=== PATIENT | female | born 1990 | race Caucasian/White ===

== ENCOUNTER 2019-04-18 05:30 | Inpatient (IN) ==
[2019-04-18] MEDS ORDERED: Metoclopramide 10 MG/2 ML VIAL IVP PRN (06:13)
[2019-04-18] MEDS ORDERED: miSOPROStol 25 MCG TABLET PO PRN (06:13)
[2019-04-18] MEDS ORDERED: *HR* Nalbuphine 10 MG/ML AMPUL IVP PRN (06:13)
[2019-04-18] MEDS ORDERED: Ondansetron 4 MG/2 ML VIAL IVP PRN (06:13)
[2019-04-18] MEDS ORDERED: Naloxone 0.4 MG/ML INJ IVP PRN (06:13)
[2019-04-18] MEDS ORDERED: Famotidine 20 MG/2 ML VIAL IVP PRN (06:13)
[2019-04-18] MEDS ORDERED: Ringers Solution, Lactated 1,000 ML IVC SCH (06:15)
[2019-04-18] MEDS ORDERED: Oxytocin 20 units/ LR 1000 mL 20 UNIT/1,000 ML BAG IVC SCH (06:15)
[2019-04-18] MEDS ORDERED: Ringers Solution, Lactated 1,000 ML ONE (06:18)
[2019-04-18 06:43] LABS: Basophils % 0.2 %; Eosinophils # 0.2 K/mcL (0.0-0.6); Eosinophils % 1.2 %; Hematocrit 35.9 % (35.3-44.9); Hemoglobin 11.9 g/dL (11.5-15.4); Immature Granulocytes % 0.7 % (0-4); Lymphocytes # 2.1 K/mcL (0.6-4.6); Lymphocytes % 12.6 %; Mean Corpuscular HGB Conc 33.1 g/dL (31.6-35.5); Mean Corpuscular Hemoglobin 28.6 pg (28.0-33.3); Mean Corpuscular Volume 86.3 fL (83.0-100.0); Mean Platelet Volume 12.1 fL (9.4-12.4); Monocytes # 0.8 K/mcL (0.0-1.3); Monocytes % 4.8 %; Neutrophils # 13.6 K/mcL (1.6-8.9); Platelet Count 244 K/mcL (140-400); Red Blood Count 4.16 M/mcL (3.82-4.97); Red Cell Distribution Width 14.1 % (11.5-14.5); Segmented Neutrophils % 80.5 %; White Blood Count 16.9 K/mcL (4.3-11.1)
[2019-04-18 06:51] LABS: Amphetamine Screen,Urine Negative ng/mL (Cutoff=1000); Barbiturate Screen,Urine Negative ng/mL (Cutoff=200)
[2019-04-18 06:53] LABS: Benzodiazepines Screen,Urine Negative ng/mL (Cutoff=300); Cannabinoid Screen,Urine Negative ng/mL (Cutoff = 50); Cocaine Screen,Urine Negative ng/mL (Cutoff= 300); Opiate Screen,Urine Negative ng/mL (Cutoff=300); Phencyclidine Screen,Urine Negative ng/mL (Cutoff=25)
[2019-04-18 08:16] LABS: Creatinine,Urine 104 mg/dL; Protein/Creatinine Ratio,Urine 0.21 mg/mg (0.00-0.20)
--- NOTE | 2019-04-18 08:27 | OB/GYN History & Physical ---
Date of Encounter: 04/18/19 Time of Encounter: 08:23 Assessment and Plan (1) 38 weeks gestation of Current visit: Yes Status: Acute (2) Obesity affecting in third trimester Current visit: Yes Status: Acute (3) Chronic hypertension during Current visit: Yes Status: Acute Plan for induction of labor with cytotec and espinal catheter. Cook catheter is inserted without difficulty and 60 ml placed in the uterine balloon and 40 ml in the vaginal balloon. Patient tolerated the procedure well. External monitoring Anticipate vaginal delivery History of Present Illness Chief complaint: induction of labor for chronic hypertension HPI: Ms. Pierre is a 29 year old female G 3 P 1-0-1-1 at 38 0/7 weeks her for induction of labor for chronic hypertension not requiring medication. She denies any headaches, visual changes, or RUQ pain. She reports good movement. She is not feeling any contractions, vaginal bleeding, or leaking fluid. Her has been complicated by maternal obesity, 2 vessel cord, and chronic hypertension. PN labs B positive Rubella Immune Varicella Immune GBS negative Past Med Surg Social Fam HX - Past Medical History Source: patient Medical history: hypertension Additional medical history: CHRONIC HTN, headaches Psychiatric history: depression - Past Surgical History Surgical History: no surgical history - Social History Smoking Status: Never smoker Alcohol use: none Drug use: none - Family History Mother Adopted: No Living Status: Still Living Hx Family Cardiac Disorders: No Hx Family Respiratory Disorders: Yes (COPD, ASTHMA) Hx Family Cancer: No Hx Family GI Disorders: No Hx Family Genitourinary Disorders: No Hx Family Endocrine Disorder: No Hx Family Musculoskeletal Disorders: No Hx Family Neuromuscular Disorders: Yes (ESSENTIAL TREMOR DISEASE) Hx Family Neurologic Disorders: No Hx Family HEENT Disorders: No Hx Family Autoimmune Disorders: No Hx Family Reproductive Disorders: No Hx Family Psychosocial Disorders: No Hx Family Medical Disorders: No Obstetrical History - Pregnancies : 3 Para: 1 Term: 1 : 0 Ab's: 1 Livin Medications and Allergies Aspirin 81 mg PO DAILY 04/18/19 [History] Formula Tablet 1 tab PO DAILY 04/18/19 [History] Allergy/AdvReac Type Severity Reaction Status Date / Time No Known Allergies Allergy Verified 04/18/19 06:21 Review of System OB All systems PM: reviewed and no additional remarkable complaints except as stated - Constitutional Constitutional ROS IM: no chills, no headache(s), no lethargy - Gastrointestinal Gastrointestinal: no nausea, no vomiting Exam - Vital Signs Vital signs: Initial Vital Signs Temp Pulse Resp BP 98.2 F 112 15 132/66 04/18/19 06:09 04/18/19 06:09 04/18/19 06:09 04/18/19 06:09 - Constitutional Constitutional: well developed, well nourished, no acute distress, obese - HEENT HEENT: EOMI - Lungs Respiratory exam: CTAB - Cardiovascular Cardiovascular exam: RRR - Abdomen Abdomen: Present: bowel sounds normal, gravid, non tender - Extremities Extremities exam: pedal edema - Vagina Vagina: Present: normal moisture - Cervix Dilation: 2 Effacement: 50 Station: -2 - Comments Comments: FHT's baseline 130, category 1 Results Result Diagrams: 04/18/19 06:05 04/18/19 06:05 Abnormal lab results WBC 16.9 K/mcL (4.3-11.1) H 04/18/19 06:05 Neutrophils # 13.6 K/mcL (1.6-8.9) H 04/18/19 06:05 Creatinine 0.50 mg/dL (0.60-1.20) L 04/18/19 06:05 Protein/Creatinin Ratio 0.21 mg/mg (0.00-0.20) H 04/18/19 06:05 Urine Total Protein 22 mg/dL (1-14) H 04/18/19 06:05 All other labs reviewed US - abdomen: report reviewed (EFW 6lb 4 oz 43% ZANA 6.9 cm on 04/13/2019) - VTE Reasons for not Prescribing Prophylaxis: Treatment not Indicated - Low risk for VTE
[2019-04-18] MEDS: Epidural Premix (fent/bupiv) 110 ML EP SCH ×2 (12:23→19:11)
--- NOTE | 2019-04-18 12:57 | OB Labor Progress Note ---
Date of Encounter: 04/18/19 Time of Encounter: 12:55 Labor Progress Note - Subjective Subjective: Patient is comfortable after the epidural - Cervix Cervix: 4/50/-3 cephalic - Heart Tones Heart Tones: category 1, baseline 135 - [employer]: infrequent - Interventions Interventions: AROM with clear fluid. IUPC and FSE placed without difficulty - Plan Plan: Begin pitocin PRN
--- NOTE | 2019-04-18 13:33 | Event Note ---
Date of Encounter: 04/18/19 Time of Encounter: 13:27 CTSP:palpitations Patient is complaining of palpitations. She denies any chest pain or shortness of breath. She states she frequently gets tachycardia and has since she was a teenager. She states she has never had a workup or any problems associated with this. BP108/59 Previous to epidural was 130's systolic/60's CV-Tachycardia with regular rhythm Lungs clear Patient appears to be resting comfortably and he is in no distress EKG-12 lead stat Anethesia ordered administration of phenylephrine for the relative hypotension Continue to monitor FHTs and maternal heart rate
[2019-04-18] MEDS ORDERED: *HR* Adenosine 6 MG/2 ML VIAL IVP ONE ×2 (13:49)
--- NOTE | 2019-04-18 13:51 | Anesthesia Evaluation PreOp ---
Date of Encounter: 04/18/19 Time of Encounter: 12:00 - Past History Planned Operation: SHARI Cardiac History: Denies any Significant Hx Pulmonary History: Denies Any Significant HX [employer] History: Denies Any Significant HX Other Medical History: Denies Any Significant HX Anesthesia History: No Prior Anesthetic Complications : Yes Alcohol Use: none Drug use: none Medications and Allergies Aspirin 81 mg PO DAILY 04/18/19 [History] Formula Tablet 1 tab PO DAILY 04/18/19 [History] Allergy/AdvReac Type Severity Reaction Status Date / Time No Known Allergies Allergy Verified 04/18/19 06:21 - Meds/Allergy Pre-op Review Medications Reviewed: Yes Allergies Reviewed: Yes Beta Blockers on Current Med List: No Anesthesia Results - Labs 04/18/19 06:05 04/18/19 06:05 Anesthesia Exam - HEENT Pupil (Motor): Pupils equal Mallampati: II Teeth: Normal Oral Opening: Greater than 3 - [employer] LOC: Oriented [employer] Motor: Normal RUE, Normal LUE, Normal RLE, Normal LLE, Normal Face [employer] Sensory: Normal: RUE, LUE, RLE, LLE, Face - Cardiac Rhythm: Regular Murmur: None JVD: No Carotid Bruit: No - Pulmonary Breath Sounds: bilateral Clear, bilateral Rales, bilateral Rhonchi Anesthesia Assess/Plan ASA Score: 2 Level of consciousness: Cooperative Anesthetic Plan: Epidural
--- NOTE | 2019-04-18 13:53 | Anesthesia Procedures ---
Date of Encounter: 04/18/19 Time of Encounter: 12:14 Procedures: Anesthesia - Epidural/Spinal Patient ID/Chart reviewed: Yes Patient examined: Yes OB Eval: Gestational age: 38 OB Eval: : 3 OB Eval: Hx Para: 1 OB Eval: Dilated at (cm): 4 OB Eval: Contractions: Non-stressed pattern Consent Obtained: Yes Supplemental Oxygen: None/Room Air Site Prep: Aseptic Technique, Sterile prep and drape, Povidone-Iodine 1% Patient position: upright Amount of Local Anesthetic used: 3 Touhy Needle Gauge: 18 Touhy Needle Depth (cm): 8 Catheter Depth at Skin (cm): 10 Test Dose (1.5% Lido + Epi): Volume given (mls): 3 Test Dose Result: Negative Infusion Rate (mls/hr): [address]: Tegaderm, Tape Interspace Used: L4-L5 Loss of Resistance (KRAIG): Yes Blood: No CSF: No Paresthesia: No Procedure: tolerated procedure well VSS FHTS
--- NOTE | 2019-04-18 15:51 | Cardiology Consult Note ---
<Dylan Gil M - Last Filed: 04/18/19 15:44> Date of Encounter: 04/18/19 Time of Encounter: 14:00 Assessment and Plan (1) Supraventricular tachycardia Current Visit: Yes Status: Acute Patient was noted to be in SVT EKG showed indeterminate ST/T wave abnormalities HR was in the 120's Patient reports history of palpitations, no formal W/U Patient was symptomatic with palpitations, BP stable Patient was in active labor with Epidural in place Vagal Maneuvers ineffective 6mg IVP Adenocard given Repeat EKG showed Sinus Tachycardia, rate improved to low 100's Patient reported symptomatic improvement as well -Continue Telemetry -Started on 25mg Lopressor BID -Will S/O at this time, please call if any questions and reconsult as needed Discussion w patient/family: The assessment and plan as outlined above was discussed with the patient and/or family members who expressed understanding and agreement. All questions were answered. Thank you for involving us in the care of your patient. Please call with any questions. History of Present Illness Consult date: 04/18/19 Consult reason: tachycardia Chief complaint: palpitations History of present illness: Ms. Pierre is a 29 year old female with a PMHx of HTN, Headaches, and depression, who is currently admitted to the L+D unit for induction of labor d/t chronic HTN. The patient was reporting symptoms of palpitations, and an EKG was obtained which revealed the patient was in supraventricular tachycardia with non-diagnostic ST/T wave abnormalities. The patient was seen and examined at bedside and reported some minimal discomfort. Adenocard was used for chemical cardioversion with good success. Repeat EKG showed Sinus Tachycardia with normal ST/T waves and no signs of ischemia. Past Med Surg Social Fam HX - Past Medical History Medical history: hypertension Additional medical history: CHRONIC HTN, headaches Psychiatric history: depression - Past Surgical History Surgical History: no surgical history - Social History Smoking Status: Never smoker Alcohol use: none Drug use: none - Family History Mother Adopted: No Living Status: Still Living Hx Family Cardiac Disorders: No Hx Family Respiratory Disorders: Yes (COPD, ASTHMA) Hx Family Cancer: No Hx Family GI Disorders: No Hx Family Genitourinary Disorders: No Hx Family Endocrine Disorder: No Hx Family Musculoskeletal Disorders: No Hx Family Neuromuscular Disorders: Yes (ESSENTIAL TREMOR DISEASE) Hx Family Neurologic Disorders: No Hx Family HEENT Disorders: No Hx Family Autoimmune Disorders: No Hx Family Reproductive Disorders: No Hx Family Psychosocial Disorders: No Hx Family Medical Disorders: No Medications and Allergies Aspirin 81 mg PO DAILY 04/18/19 [History] Formula Tablet 1 tab PO DAILY 04/18/19 [History] Allergy/AdvReac Type Severity Reaction Status Date / Time No Known Allergies Allergy Verified 04/18/19 06:21 All Systems Review: The remainder of the systems were reviewed and are negative Physical Examination Other: Gen: Alert and oriented x 3, NAD, Vitals noted. Head: atraumatic normocephalic Eyes: anicteric sclera ENT: MMM, Oropharynx clear Neck: trachea midline CV: Sinus Tachycardia, regular rhythm, no murmurs gallops rubs Resp: CTAB no wheeze/rales/rhonchi Abd: Soft, nontender Ext: no peripheral edema Results 04/18/19 06:05 04/18/19 06:05 Lab Results 04/18/19 04/18/19 06:05 06:05 WBC 16.9 H Hgb 11.9 Hct 35.9 Plt Count 244 Creatinine 0.50 L Consult Discharge Plan - Plan Referrals: NONE,PCP [Primary Care Provider] - <Richard Prasad A - Last Filed: 04/18/19 20:17> Date of Encounter: 04/18/19 - Attending Attestation I have personally performed a face to face evaluation on this patient. I have reviewed and agree with the documented findings and care plan as documented by the resident. History and Exam by me shows: 29 y/o F in labour noted to have SVT on EKG. She has history of palpitations since teenage years. Drinks a lot of soda containing caffeine AAOX3 in NAD at the bedside Hemodynamically stable Cardiopulmonary exam revealed S1, S2, no murmur; clear lungs Rhythm reviewed - SVT with rate related ST depressions Echo pending Impression/plan: SVT -IV adenosine 6mg once under my close one-on-one supervision promptly resolved SVT - start metoprolol 25mg bid if no contraindications - obtain echocardiogram - follow up with cardiology after delivery Thanks for the consult, please call with questions. Richard Prasad MD FACC Assessment and Plan Discussion w patient/family: The assessment and plan as outlined above was discussed with the patient and/or family members who expressed understanding and agreement. All questions were answered. Thank you for involving us in the care of your patient. Please call with any questions. History of Present Illness History of present illness: Ms. Pierre is a 29 year old female All Systems Review: The remainder of the systems were reviewed and are negative Results 04/18/19 06:05 04/18/19 06:05 Lab Results 04/18/19 04/18/19 06:05 06:05 WBC 16.9 H Hgb 11.9 Hct 35.9 Plt Count 244 Creatinine 0.50 L
--- NOTE | 2019-04-18 18:35 | Electrocardiograph Report ---
[address] [address] Test Date: 2019-04-18 Pat Name: Joyce Pierre Department: 101 Room: [facility] Gender: F Production Planning Manager: : 1990 Requested By: Silvia Burt Order Number: [id number] Reading MD: Richard Prasad Measurements Intervals [place] Rate: 102 P: 61 [place]: 168 QRS: 34 QRSD: 85 T: 28 QT: 325 QTc: 384 Interpretive Statements SINUS TACHYCARDIA Electronically Signed On 04-18-2019 17:02:40 EDT by Richard Prasad
--- NOTE | 2019-04-18 18:35 | Electrocardiograph Report ---
[address] [address] Test Date: 2019-04-18 Pat Name: Joyce Pierre Department: 101 Room: [facility] Gender: F Leg Man: SONY : 1990 Requested By: Faye Holland Order Number: [id number] Reading MD: Richard Prasad Measurements Intervals [place] Rate: 173 P: [place]: 0 QRS: 47 QRSD: 85 T: -69 QT: 249 QTc: 342 Interpretive Statements SUPRAVENTRICULAR TACHYCARDIA NON SPECIFIC ST DEVIATION AND T-WAVE ABNORMALITY Electronically Signed On 04-18-2019 17:02:01 EDT by Richard Prasad
[2019-04-18] MEDS ORDERED: Ropivacaine /PF 1% 100 MG/10 ML VIAL ONE (20:29)
--- NOTE | 2019-04-18 22:05 | Anesthesia Progress Note ---
Date of Encounter: 04/18/19 Time of Encounter: 20:30 Anesthesia Note - Note Note: 04/18/19 22:02 called to patient bedside, states right side pain free, left side with pain rated at 10. Naropin 1% 5ml given via epidural catheter. 2100 reassessment reports left side is now pain free.
--- NOTE | 2019-04-19 00:56 | OB/GYN Procedure Note ---
Delivery - Delivery Date: 04/19/19 Provider: Silvia Burt Intrapartum events: other(please specify) (maternal SVT, treated with adenosine and resolved) Delivery induction: AROM, oxytocin, espinal, misoprostol Delivery monitor: external FHT, external uterine, internal FHT, internal uterine Anesthesia: epidural Quantitated Blood Loss: 100 - Infant (s) Infant A Infant Delivery Date: 04/19/19 Delivery Time: 00:37 Presentation: vertex Position: OA Route of delivery: Gender: Female Viability: Viable Pounds: 7 Ounces: 2 Weight Gram: 3.225 kg at 1 minute: 8 at 5 mins: 9 Shoulder Dystocia: not encountered Specimens collected: cord blood Placenta: spontaneous Cord: nuchal cord, 3 umbilical vessels, delivered through nuchal - Repair Episiotomy: none Laceration Description: None - Complications Delivery complications: none Delivery comments: Called to room with patient complete and +2 station. Under maternal effort she delivered a viable female weighing 7 lbs. 2 oz. and Apgars 8 and 9 at one and 5 minutes respective labor intact perineum. Following delivery of the head there was a loose nuchal cord noted that was delivered through. The shoulders and remainder of the delivered with maternal effort and was placed on mom's abdomen. Cord was allowed to cease pulsations and then was double clamped and cut with assistance from the father. Cord blood was collected. Placenta delivered spontaneously, complete, and intact with a three- vessel cord. There were no perineal, labial, or vaginal lacerations on exam. Mother and recovering in the LDR in stable condition. - Disposition Mom disposition: stable in LDR [place] disposition: stable in LDR
[2019-04-19] MEDS ORDERED: Measles/Mumps/Rubella Vacc 0.5 ML VIAL SQ PRN (04:00)
[2019-04-19] MEDS ORDERED: Oxytocin 20 units/ LR 1000 mL 20 UNIT/1,000 ML BAG IVC SCH (04:00)
[2019-04-19] MEDS ORDERED: Etonogestrel 68 MG IMPLANT IL ONE (04:00)
[2019-04-19] MEDS ORDERED: Oxytocin 20 units/ LR 1000 mL 20 UNIT/1,000 ML BAG IVC ONE (04:00)
[2019-04-19] MEDS: Aspirin 81 MG TAB.CHEW PO SCH (08:53)
[2019-04-19] MEDS: Prenatal Vit/FA 1 EACH TABLET PO SCH (08:53)
[2019-04-19] MEDS: Acetaminophen 325 MG TABLET PO PRN (09:06)
--- NOTE | 2019-04-19 12:23 | Event Note ---
Date of Encounter: 04/19/19 Time of Encounter: 12:00 - Cardiology Event Note Prelim TTE findings reviewed with --normal LVEF, normal wall motion, no significant valvular dysfunction. No recurrent SVT. Patient reports hx of SVT, diagnosed as a teenager. Has never been on medications. Reports increase in frequency of symptoms over the past 6 months-1year. Continue BB. Will coordinate outpatient follow-up with EP for evaluation of SVT ablation.
[2019-04-19] MEDS: Ibuprofen 600 MG TABLET PO PRN (18:55)
[2019-04-20] MEDS: Prenatal Vit/FA 1 EACH TABLET PO SCH (08:14)
[2019-04-20] MEDS: Aspirin 81 MG TAB.CHEW PO SCH (08:14)
[2019-04-20] MEDS: Ibuprofen 600 MG TABLET PO PRN (08:15)
[2019-04-20 08:35] VITALS: BP 138/72
[2019-04-20] MEDS: Acetaminophen 325 MG TABLET PO PRN (13:12)
--- NOTE | 2019-04-20 15:50 | Discharge Summary ---
Date of Encounter: 04/20/19 Time of Encounter: 15:48 - Discharge Diagnosis (1) Status post vaginal delivery Priority: Primary Status: Acute Comments: Patient meeting day one milestones. Pain well-controlled with prescribed medications. Voiding without difficulty, tolerating regular diet, bleeding light. No bowel movement yet. Anticipate discharge today (2) Chronic hypertension during Priority: Secondary Status: Acute Comments: Follow-up with primary care provider as needed (3) Supraventricular tachycardia Priority: Secondary Status: Acute Comments: Cardiology was consulted and performed echocardiogram which returned normal. Patient was placed on a beta aayush and that will continue at discharge. She is to follow-up on an outpatient basis with cardiology (4) Nexplanon insertion Priority: Secondary Status: Acute Comments: Patient desires Nexplanon placement prior to discharge as her method of control - Discharge Medications Prescriptions: New Metoprolol [Lopressor] 25 mg PO BID #60 tablet Acetaminophen [Tylenol] 650 mg PO Q6HR PRN tablet PRN Reason: Mild Pain Ibuprofen [Motrin] 600 mg PO Q6HR PRN #60 tablet PRN Reason: Cramping Docusate [Colace] 100 mg PO BID capsule Continued Formula Tablet 1 tab PO DAILY Aspirin 81 mg PO DAILY Home Medications: Aspirin 81 mg PO DAILY 04/18/19 [History] Formula Tablet 1 tab PO DAILY 04/18/19 [History] Acetaminophen [Tylenol] 650 mg PO Q6HR PRN tablet 04/20/19 [Rx] Docusate [Colace] 100 mg PO BID capsule 04/20/19 [Rx] Ibuprofen [Motrin] 600 mg PO Q6HR PRN #60 tablet 04/20/19 [Rx] Metoprolol [Lopressor] 25 mg PO BID #60 tablet 04/20/19 [Rx] Allergies/Adverse Reactions: Allergy/AdvReac Type Severity Reaction Status Date / Time No Known Allergies Allergy Verified 04/18/19 06:21 Data Procedures and tests throughout hospitalization: Laboratory Tests 04/18/19 04/18/19 04/18/19 06:05 06:05 06:05 WBC RBC Hgb Hct MCV MCH MCHC RDW Plt Count MPV Immature Gran % Seg Neutrophils % Lymphocytes % Monocytes % Eosinophils % Basophils % Neutrophils # Lymphocytes # Monocytes # Eosinophils # Basophils # Creatinine 0.50 L Urine Creatinine 104 Protein/Creatinin Ratio 0.21 H Urine Total Protein 22 H Urine Opiates Screen Negative Ur Buprenorphine Scrn Negative Ur Barbiturates Screen Negative Ur Phencyclidine Scrn Negative Ur Amphetamines Screen Negative U Benzodiazepines Scrn Negative Urine Cocaine Screen Negative U Marijuana (THC) Screen Negative Ur Drug Screen Interp See Below Blood Type B POSITIVE 04/18/19 06:05 WBC 16.9 H RBC 4.16 Hgb 11.9 Hct 35.9 MCV 86.3 MCH 28.6 MCHC 33.1 RDW 14.1 Plt Count 244 MPV 12.1 Immature Gran % 0.7 Seg Neutrophils % 80.5 Lymphocytes % 12.6 Monocytes % 4.8 Eosinophils % 1.2 Basophils % 0.2 Neutrophils # 13.6 H Lymphocytes # 2.1 Monocytes # 0.8 Eosinophils # 0.2 Basophils # 0.0 Creatinine Urine Creatinine Protein/Creatinin Ratio Urine Total Protein Urine Opiates Screen Ur Buprenorphine Scrn Ur Barbiturates Screen Ur Phencyclidine Scrn Ur Amphetamines Screen U Benzodiazepines Scrn Urine Cocaine Screen U Marijuana (THC) Screen Ur Drug Screen Interp Blood Type - Impressions ITS Impressions Echocardiogram 04/19/19 10:56 Impressions: LVEF 60%. Normal left ventricular diastolic function. Normal right ventricular structure and function. Mild tricuspid regurgitation. No pulmonary hypertension. Left Ventricular Wall Motion: Rest Echo Findings All wall segments showed normal motion. Findings: Study Quality * Technically adequate exam. ECG Findings * Normal sinus rhythm. Left Ventricle * LVEF 60%. * Normal LV chamber size, wall thickness and function. * Normal left ventricular diastolic function. Right Ventricle * Normal right ventricular structure and function. Left Atrium * Normal left atrial size. Right Atrium * Normal right atrial size. Aortic Valve * No aortic regurgitation. * Aortic valve not well visualized. * No aortic stenosis. Mitral Valve * No mitral regurgitation. * No mitral stenosis. * Mitral valve not well visualized. Tricuspid Valve * Tricuspid valve not well visualized. * Mild tricuspid regurgitation. * Estimated RA pressure is 3 mmHg. * Estimated RVSP is 23 mmHg. * No pulmonary hypertension. Pulmonic Valve * Pulmonic valve is not well visualized. * No pulmonic stenosis. * No pulmonic regurgitation. Pulmonary Artery * Pulmonary artery not well visualized. Aorta * Normally sized aortic root. Pericardium * There is no pericardial effusion present. Interatrial Septum * No evidence of PFO by color Doppler. IVC * The IVC is not dilated. Date of admission: 04/18/19 05:56 Primary care physician: PCP JORGE Consults: 04/18/19 13:51 Consult to Cardiology [CONS] Stat Comment: Consulting Provider: Irwin Kaur Reason for Consult: tachycardia Time Notified: 13:51 Call Completed: Yes Discharging clinician: Kim Khan Anticipated date of discharge: 04/20/19 - Patient Status Disposition: Home, Self-Care Condition: Good Functional capacity at discharge: independent ambulation Overall status at discharge: patient is progressing back to baseline - Discharge Instructions Follow Up With: NONE,PCP [Primary Care Provider] - Kelsey Larsen [Partnered Physician] - - Diet and Activity Activity: resume usual activities as tolerated Diet: regular diet Hospital Course Reason for admission: induction of labor Delivery: Episiotomy: none Laceration: none Other procedures: none complications: none Discharge diagnosis: IUP at term delivered baby: female Hospital course: Delivery Date: 04/19/19 Provider: Silvia Burt Intrapartum events: other(please specify) (maternal SVT, treated with adenosine and resolved) Delivery induction: AROM, oxytocin, espinal, misoprostol Delivery monitor: external FHT, external uterine, internal FHT, internal uterine Anesthesia: epidural Quantitated Blood Loss: 100 - (s) Infant A Delivery Date: 04/19/19 Infant Delivery Time: 00:37 Presentation: vertex Position: OA Route of delivery: Gender: Female Viability: Viable Pounds: 7 Ounces: 2 Weight Gram: 3.225 kg at 1 minute: 8 at 5 mins: 9 Shoulder Dystocia: not encountered Specimens collected: cord blood Placenta: spontaneous Cord: nuchal cord, 3 umbilical vessels, delivered through nuchal - Repair Episiotomy: none Laceration Description: None - Complications Delivery complications: none Delivery comments: Called to room with patient complete and +2 station. Under maternal effort she delivered a viable female weighing 7 lbs. 2 oz. and Apgars 8 and 9 at one and 5 minutes respective labor intact perineum. Following delivery of the head there was a loose nuchal cord noted that was delivered through. The shoulders and remainder of the infant delivered with maternal effort and was placed on mom's abdomen. Cord was allowed to cease pulsations and then was double clamped and cut with assistance from the father. Cord blood was collected. Placenta delivered spontaneously, complete, and intact with a three- vessel cord. There were no perineal, labial, or vaginal lacerations on exam. Mother and recovering in the LDR in stable condition. - Disposition Mom disposition: stable in LDR [place] disposition: stable in LDR Time Attestation: Total time spent providing and/or coordinating discharge services: Time Spent: Less than 30 minutes Exam - Constitutional Vitals: Temp Pulse Resp BP Pulse Ox 97.6 F 82 16 138/72 93 04/20/19 08:34 04/20/19 08:34 04/20/19 08:34 04/20/19 08:34 04/20/19 08:34 General appearance IM: A&O X 3, pleasant, no acute distress, answers questions appropriately - Respiratory Respiratory exam: Present: CTAB. Absent: respiratory distress - Cardiovascular Cardiovascular exam IM: Present: RRR, +S1, +S2. Absent: irregular rhythm - GI/Abdominal GI/Abdominal exam IM: normal bowel sounds, soft - Rectal Rectal exam: deferred - External exam: normal external exam Uterine Tone: Firm Uterus Position: At Umbilicus, Midline - Extremities Exam Extremities exam IM: Present: full ROM, normal capillary refill, normal inspection. Absent: calf tenderness - Neurological Exam Neurological exam: alert, normal gait, oriented X3
[2019-04-20] MEDS ORDERED: Lidocaine/EPI 1:100k 1% 30 ML VIAL INFILT ONE (15:55)
[2019-04-20] MEDS ORDERED: Etonogestrel 68 MG IMPLANT IL ONE (15:55)
--- NOTE | 2019-04-20 16:52 | OB/GYN Procedure Note ---
[facility] OFFICE RECEPTIONIST: Procedure - Diagnosis Date of procedure: 04/20/19 Pre-op diagnosis: Desires contraception Post-op diagnosis: same - Procedure Procedure: Nexplanon insertion Surgeon: Kim Khan Was there an orthopaedic physician assistant present: No Anesthesia provider: Kim Khan Anesthesia Type: Local Procedure Complications: None Disposition: no change Narrative: Patient desires Nexplanon for control and would like to have it placed p rior to discharge. Examination: Informed consent was obtained and time out performed. Patient was placed in supine position with left arm in the appropriate position. Betadine was used to prep the arm in sterile fashion. 1% Lidocaine was used for anesthesia. The Nexplanon was inserted in the subcutaneous tissue to the appropriate length then the Nexplanon was released. Both myself and the patient can palpate the martha without difficulty. Bandage and pressure dressing was applied. Patient tolerate the procedure well. Patient was instructed on wound care and is to follow up as needed. Patient educated on back up control for 7 days. Procedure: Correct patient, procedure, and site were verified and time out performed per policy. Therapeutic Injections: 3 mL of Lidocaine given at site of insertion by Vandana Khan CNM
== END 2019-04-20 16:58 | disposition home or self-care (01) | DRG 560 ==
LOC: 1NENULAB 05:56 → 1NENUOBS 04-19 03:48
PROVIDERS: ADMIT Obstetrics & Gynecology; ATTEND Obstetrics & Gynecology